=== PATIENT | female | born 1940 | race Caucasian/White ===

== ENCOUNTER 2021-10-22 05:43 | Emergency (ER) | payer MEDICARE, OTHER ==
[2021-10-22 06:37] VITALS: BP 146/85; PULSE 102
== END 2021-10-22 08:12 | disposition home or self-care (01) ==
LOC: JD.ED 05:43
DX: N39.0 Urinary tract infection, site not specified (principal); I10 Essential (primary) hypertension; Z88.5 Allergy status to narcotic agent; Z88.8 Allergy status to other drugs, medicaments and biological substances; Z88.0 Allergy status to penicillin
CPT/HCPCS: 81001; 99283

== ENCOUNTER 2022-03-04 13:36 | Emergency (ER) | payer MEDICARE, OTHER ==
[2022-03-04 13:45] VITALS: BP 156/84; PULSE 96
== END 2022-03-04 17:47 | disposition home or self-care (01) ==
LOC: JD.ED 13:36
DX: S06.9X9A Unspecified intracranial injury with loss of consciousness of unspecified duration, initial encounter (principal); S00.03XA Contusion of scalp, initial encounter; I10 Essential (primary) hypertension; Z88.0 Allergy status to penicillin; Z88.5 Allergy status to narcotic agent; Z88.8 Allergy status to other drugs, medicaments and biological substances; W18.09XA Striking against other object with subsequent fall, initial encounter
CPT/HCPCS: 36415; 70450; 70450-26; 71045; 71045-26; 80053; 84484; 85025; 85610; 85730; 93005; 99284

== ENCOUNTER 2023-07-10 16:33 | Emergency (ER) | payer MEDICARE, OTHER ==
[2023-07-10 16:51] VITALS: BP 145/87; PULSE 103
[2023-07-10] MEDS ORDERED: Acetaminophen 325 MG Tab PO ONE ×2 (17:00→17:15)
== END 2023-07-10 18:24 | disposition home or self-care (01) ==
LOC: JD.ED 16:33
DX: M54.50 Low back pain, unspecified (principal); I10 Essential (primary) hypertension; Z90.710 Acquired absence of both cervix and uterus; Z88.0 Allergy status to penicillin; Z88.5 Allergy status to narcotic agent
CPT/HCPCS: 72131; 99283; A9270

== ENCOUNTER 2023-12-11 14:47 | Emergency (ER) | payer MEDICARE, OTHER ==
[2023-12-11] MEDS: Iopamidol 755 Mg/ML 100 ML Bottle IVPUSH ONE (14:57)
[2023-12-11] MEDS: Sodium Chloride 0.9% 10 ML Syringe FLUSH PRN (14:57)
[2023-12-11] MEDS: Sodium Chloride 0.9% 45 ML IV SCH (14:57)
[2023-12-11 15:40] LABS: BASOPHILS PERCENT AUTO 0.3 % (0.0-1.0); HEMATOCRIT 36.8 % (37.0-47.0); HEMOGLOBIN 12.4 gm/dl (12.0-16.0); IMMATURE GRAN ABSOLUTE AUTO 0.02 K/mm3 (0.00-0.05); IMMATURE GRAN PERCENT AUTO 0.6 % (0.0-0.4); LYMPHOCYTES ABSOLUTE AUTO 0.7 K/mm3 (1.0-4.8); LYMPHOCYTES PERCENT AUTO 19.7 % (24.0-44.0); MEAN CORPUSCULAR HEMOGLOBIN 31.2 pg (28.0-32.0); MEAN CORPUSCULAR HGB CONC 33.7 g/dl (32.0-36.0); MEAN CORPUSCULAR VOLUME 92.7 fl (83.0-99.0); MEAN PLATELET VOLUME 9.8 fl (9.4-12.3); MONOCYTES ABSOLUTE AUTO 0.9 K/mm3 (0.0-0.8); MONOCYTES PERCENT AUTO 25.8 % (0.0-8.0); NEUTROPHILS ABSOLUTE AUTO 1.9 K/mm3 (1.8-7.7); NEUTROPHILS PERCENT AUTO 53.6 % (41.0-71.0); PLATELET COUNT,PLT 185 K/mm3 (150-400); RED BLOOD CELL COUNT 3.97 M/mm3 (4.10-5.30)
[2023-12-11 15:59] LABS: ALBUMIN 3.7 g/dl (3.4-5.0); ANION GAP 15.7 (5-15); BILIRUBIN TOTAL 0.7 mg/dL (0.2-1.0); BUN/CREATININE RATIO 13.6 (14-18); CALCIUM 8.9 mg/dL (8.5-10.1); CREATININE 1.4 mg/dL (0.55-1.02); EST CRCL DRUG DOSING (CG) 26.29 mL/min; POTASSIUM,K 3.7 mEq/L (3.5-5.1); PROTEIN TOTAL,TP 7.5 g/dl (6.4-8.2)
[2023-12-11 16:00] LABS: PROTHROMBIN TIME 10.7 SECONDS (9.7-12.0)
[2023-12-11 16:01] LABS: LACTIC ACID 1.5 mmol/L (0.4-2.0); PTT,PARTIAL THROMBOPLSTIN TIME 29.1 SECONDS (21.7-31.4)
[2023-12-11 16:03] LABS: APPEARANCE,URINE CLEAR (Clear); BILIRUBIN,URINE NEGATIVE (Negative); COLOR,URINE YELLOW (Yellow); GLUCOSE,URINE NEGATIVE (Negative); KETONES,URINE NEGATIVE (Negative); LEUKOCYTE ESTERASE,URINE NEGATIVE (Negative); NITRITE,URINE NEGATIVE (Negative); OCCULT BLOOD,URINE NEGATIVE (Negative); PROTEIN,URINE TRACE (Negative); UROBILINOGEN,URINE 0.2 (0.2-1.0)
[2023-12-11] MEDS: Sodium Chloride 0.9% 1,000 ML IV ONE ×2 (16:03→17:09)
[2023-12-11] MEDS: Acetaminophen 325 MG Tab PO ONE (16:04)
[2023-12-11 16:16] LABS: RBC,URINE 0-5 /hpf (0-5); WBC,URINE 0-5 /hpf (0-5)
[2023-12-11 16:17] LABS: BACTERIA,URINE FEW /hpf (FEW); MUCUS,URINE FEW /hpf (FEW); SQUAMOUS EPITHELIAL CELLS,UR 0-5 /hpf (0-5)
[2023-12-11] MEDS ORDERED: Sodium Chloride 0.9% 100 ML IV SCH (17:15)
[2023-12-11] MEDS: Iopamidol 612 MG/ML 100 ML Bottle IVPUSH ONE (17:31)
[2023-12-11 18:22] LABS: CORONAVIRUS COVID-19 NAA POSITIVE (NEGATIVE); INFLUENZA A NAA NEGATIVE (NEGATIVE); RESPIRATORY SYNCYTIAL VIR NAA NEGATIVE (NEGATIVE)
[2023-12-11] MEDS: cefTRIAXone 1 GM in Sodium Chloride 0.9% 100 ML IV ONE (18:49)
[2023-12-11 19:48] VITALS: BP 109/63; PULSE 98
== END 2023-12-11 19:43 | disposition home or self-care (01) ==
LOC: JD.ED 14:47
DX: J18.9 Pneumonia, unspecified organism (principal); I10 Essential (primary) hypertension; Z88.0 Allergy status to penicillin; Z88.5 Allergy status to narcotic agent
CPT/HCPCS: 0241U; 36415; 70450; 70450-26; 70496; 70496-26; 70498; 70498-26; 71045; 71045-26; 71260; 71260-26; 74177; 74177-26; 80053; 81001; 82947; 83605; 84484; 85025; 85610; 85730; 87040; 93005; 93010; 96361; 96365; 99284; 99285-25; A9270-GY; C1758; J0696; J3490; J7030; Q9967

== ENCOUNTER 2024-02-02 19:57 | Inpatient (IN) | payer MEDICARE, OTHER ==
[2024-02-02 20:14] LABS: BASOPHILS PERCENT AUTO 0.4 % (0.0-1.0); EOSINOPHILS PERCENT AUTO 0.8 % (0.0-6.0); HEMATOCRIT 34.8 % (37.0-47.0); HEMOGLOBIN 11.5 gm/dl (12.0-16.0); IMMATURE GRAN ABSOLUTE AUTO 0.02 K/mm3 (0.00-0.05); IMMATURE GRAN PERCENT AUTO 0.4 % (0.0-0.4); LYMPHOCYTES ABSOLUTE AUTO 2.3 K/mm3 (1.0-4.8); LYMPHOCYTES PERCENT AUTO 46.5 % (24.0-44.0); MEAN CORPUSCULAR HEMOGLOBIN 31.2 pg (28.0-32.0); MEAN CORPUSCULAR VOLUME 94.3 fl (83.0-99.0); MEAN PLATELET VOLUME 9.5 fl (9.4-12.3); MONOCYTES ABSOLUTE AUTO 0.8 K/mm3 (0.0-0.8); MONOCYTES PERCENT AUTO 15.6 % (0.0-8.0); NEUTROPHILS ABSOLUTE AUTO 1.8 K/mm3 (1.8-7.7); NEUTROPHILS PERCENT AUTO 36.3 % (41.0-71.0); PLATELET COUNT,PLT 222 K/mm3 (150-400); RED BLOOD CELL COUNT 3.69 M/mm3 (4.10-5.30); WHITE BLOOD CELL COUNT,WBC 4.93 K/mm3 (3.9-11.3)
[2024-02-02] MEDS: ceFAZolin 2 GM in Sodium Chloride 0.9% 50 ML IV ONE (20:15)
[2024-02-02] MEDS: Sodium Chloride 0.9% 1,000 ML IV ONE ×2 (20:15→22:30)
[2024-02-02] MEDS: Diphtheria,Pertussis(Acell),Tetanus Vaccine 0.5 ML Syringe IM ONE (20:15)
[2024-02-02] MEDS: Sodium Chloride 0.9% 10 ML Syringe FLUSH ONE (20:28)
[2024-02-02 20:42] LABS: ALBUMIN 3.8 g/dl (3.4-5.0); ANION GAP 13.6 (5-15); BILIRUBIN TOTAL 0.4 mg/dL (0.2-1.0); BUN/CREATININE RATIO 19.3 (14-18); CALCIUM 9.5 mg/dL (8.5-10.1); CREATININE 1.5 mg/dL (0.55-1.02); EST CRCL DRUG DOSING (CG) 28.67 mL/min; MAGNESIUM 2.2 mg/dL (1.8-2.4); POTASSIUM,K 3.6 mEq/L (3.5-5.1); PROTEIN TOTAL,TP 7.6 g/dl (6.4-8.2)
[2024-02-02] MEDS: Sodium Chloride 0.9% 100 ML IV SCH (20:48)
[2024-02-02] MEDS: Iopamidol 612 MG/ML 100 ML Bottle IVPUSH ONE (20:48)
[2024-02-02] MEDS: Iopamidol 612 MG/ML 30 ML SDV IVPUSH ONE (20:48)
[2024-02-02 21:15] LABS: APPEARANCE,URINE CLEAR (Clear); BILIRUBIN,URINE NEGATIVE (Negative); COLOR,URINE LIGHT YELLOW (Yellow); GLUCOSE,URINE NEGATIVE (Negative); KETONES,URINE NEGATIVE (Negative); LEUKOCYTE ESTERASE,URINE NEGATIVE (Negative); NITRITE,URINE NEGATIVE (Negative); OCCULT BLOOD,URINE TRACE-LYSED (Negative); PH,URINE 5.5 (5.0-8.0); PROTEIN,URINE NEGATIVE (Negative); UROBILINOGEN,URINE 0.2 (0.2-1.0)
[2024-02-02] MEDS: Lidocaine 2% with EPINEPHrine 1:100,000 20 ML MDV INJECT ONE (22:00)
[2024-02-02 22:06] LABS: RBC,URINE 0-5 /hpf (0-5); SQUAMOUS EPITHELIAL CELLS,UR 0-5 /hpf (0-5); WBC,URINE 0-5 /hpf (0-5)
[2024-02-02 22:07] LABS: BACTERIA,URINE FEW /hpf (FEW); MUCUS,URINE FEW /hpf (FEW)
[2024-02-03 05:36] LABS: BASOPHILS PERCENT AUTO 0.3 % (0.0-1.0); EOSINOPHILS ABSOLUTE AUTO 0.1 K/mm3 (0.0-0.4); EOSINOPHILS PERCENT AUTO 0.9 % (0.0-6.0); HEMATOCRIT 32.7 % (37.0-47.0); HEMOGLOBIN 10.9 gm/dl (12.0-16.0); IMMATURE GRAN ABSOLUTE AUTO 0.04 K/mm3 (0.00-0.05); IMMATURE GRAN PERCENT AUTO 0.7 % (0.0-0.4); LYMPHOCYTES ABSOLUTE AUTO 1.8 K/mm3 (1.0-4.8); LYMPHOCYTES PERCENT AUTO 30.3 % (24.0-44.0); MEAN CORPUSCULAR HGB CONC 33.3 g/dl (32.0-36.0); MEAN CORPUSCULAR VOLUME 92.9 fl (83.0-99.0); MEAN PLATELET VOLUME 9.5 fl (9.4-12.3); MONOCYTES ABSOLUTE AUTO 0.9 K/mm3 (0.0-0.8); MONOCYTES PERCENT AUTO 16.1 % (0.0-8.0); NEUTROPHILS PERCENT AUTO 51.7 % (41.0-71.0); PLATELET COUNT,PLT 201 K/mm3 (150-400); RED BLOOD CELL COUNT 3.52 M/mm3 (4.10-5.30); WHITE BLOOD CELL COUNT,WBC 5.84 K/mm3 (3.9-11.3)
[2024-02-03 05:54] LABS: A/G RATIO 0.9 (1-2); ALBUMIN 3.2 g/dl (3.4-5.0); ANION GAP 16.6 (5-15); BILIRUBIN TOTAL 0.4 mg/dL (0.2-1.0); BUN/CREATININE RATIO 15.4 (14-18); CALCIUM 8.5 mg/dL (8.5-10.1); CREATININE 1.3 mg/dL (0.55-1.02); EST CRCL DRUG DOSING (CG) 29.5 mL/min; POTASSIUM,K 3.6 mEq/L (3.5-5.1); PROTEIN TOTAL,TP 6.6 g/dl (6.4-8.2)
[2024-02-03] MEDS ORDERED: traMADol 50 MG Tab PO PRN (07:57)
[2024-02-03] MEDS ORDERED: Morphine 2 MG/ML SYRINGE IVPUSH PRN (07:58)
[2024-02-03] MEDS: Acetaminophen 325 MG Tab PO PRN (08:03)
[2024-02-03 08:09] LABS: TSH 3.209 uIU/mL (0.358-3.74)
[2024-02-03] MEDS ORDERED: Sennosides/Docusate Sodium 50-8.6 MG Tab PO PRN (09:42)
[2024-02-03] MEDS ORDERED: Ondansetron 4 MG/2 ML SDV IV PRN (09:42)
[2024-02-03] MEDS ORDERED: Melatonin 3 MG Tab PO PRN (09:42)
[2024-02-03] MEDS ORDERED: 50% Dextrose in Water 50 ML Syringe IVPUSH PRN (09:50)
[2024-02-03] MEDS: Enoxaparin 30 MG/0.3 ML Syringe SUBCUT SCH (10:03)
[2024-02-03] MEDS: Insulin Lispro 100 Unit/ML 3 ML KwikPen SUBCUT SCH (11:41)
[2024-02-04 05:44] LABS: HEMATOCRIT 32.5 % (37.0-47.0); HEMOGLOBIN 10.8 gm/dl (12.0-16.0); MEAN CORPUSCULAR HEMOGLOBIN 31.1 pg (28.0-32.0); MEAN CORPUSCULAR HGB CONC 33.2 g/dl (32.0-36.0); MEAN CORPUSCULAR VOLUME 93.7 fl (83.0-99.0); MEAN PLATELET VOLUME 9.7 fl (9.4-12.3); PLATELET COUNT,PLT 187 K/mm3 (150-400); RED BLOOD CELL COUNT 3.47 M/mm3 (4.10-5.30)
[2024-02-04 06:05] LABS: ANION GAP 16.9 (5-15); BUN/CREATININE RATIO 16.9 (14-18); CALCIUM 8.8 mg/dL (8.5-10.1); CREATININE 1.3 mg/dL (0.55-1.02); EST CRCL DRUG DOSING (CG) 29.5 mL/min; PHOSPHORUS 3.1 mg/dL (2.6-4.7); POTASSIUM,K 3.9 mEq/L (3.5-5.1)
[2024-02-04] MEDS: Multivitamin Tab PO SCH (08:43)
[2024-02-04] MEDS ORDERED: hydrALAZINE 20 MG/ML SDV IVPUSH PRN (17:21)
[2024-02-04] MEDS: Potassium Chloride 20 MEQ Tab.ER PO ONE (17:56)
[2024-02-05 04:33] VITALS: BP 135/79; PULSE 79
== END 2024-02-05 12:48 | disposition other institution (70) | DRG 312 ==
LOC: JD.ED 19:57 → JD.MS 22:25
PROVIDERS: ADMIT Student in an Organized Health Care Education/Training Program; ATTEND Student in an Organized Health Care Education/Training Program
PROC: 0JQ03ZZ Repair Scalp Subcutaneous Tissue and Fascia, Percutaneous Approach (ICD-10-PCS; principal; 2024-02-02)
DX: R55 Syncope and collapse (principal); N17.9 Acute kidney failure, unspecified; N18.9 Chronic kidney disease, unspecified; N18.32 Chronic kidney disease, stage 3b; S01.01XA Laceration without foreign body of scalp, initial encounter; Z88.5 Allergy status to narcotic agent; Z23 Encounter for immunization; H11.31 Conjunctival hemorrhage, right eye; F03.90 Unspecified dementia, unspecified severity, without behavioral disturbance, psychotic disturbance, mood disturbance, and anxiety; Y93.89 Activity, other specified; H91.90 Unspecified hearing loss, unspecified ear; H54.7 Unspecified visual loss; I12.9 Hypertensive chronic kidney disease with stage 1 through stage 4 chronic kidney disease, or unspecified chronic kidney disease; I65.23 Occlusion and stenosis of bilateral carotid arteries; W19.XXXA Unspecified fall, initial encounter; Z88.0 Allergy status to penicillin; Z88.8 Allergy status to other drugs, medicaments and biological substances; Z98.49 Cataract extraction status, unspecified eye; Z90.710 Acquired absence of both cervix and uterus; Z79.899 Other long term (current) drug therapy
CPT/HCPCS: 12005; 36415; 70450; 71260; 72125; 74177; 80053; 81001; 82550; 83735; 84484; 85025; 90715; 93005; 96365; 99285; C1758; J0690; J3490 ×4; J7030; Q9967 ×2; 80048; 82947; 84100; 84443; 85027; 87641; 93010; 93306; 93880; 93880-26; 94760; 94761; 97161-GP; 97530-GP; A9270-GY; J1650